=== PATIENT | female | born 1975 | race American Indian/Alaskan Native ===

== ENCOUNTER 2018-09-11 19:21 | Emergency (ER) | payer SELFPAY ==
[2018-09-11] MEDS ORDERED: NACL 0.9% 500 ML 500 ML IV ONE (19:33)
--- NOTE | 2018-09-11 19:53 | Emergency Department Report ---
ED Syncope HPI - General Chief Complaint: Anxiety Stated Complaint: CHEST PAIN/MARSHALL Time Seen by Provider: 09/11/18 19:23 Source: patient Exam Limitations: no limitations - History of Present Illness Initial Comments: Mrs. Brooks is a 43-year-old female with history of mild intermittent asthma and anxiety who presents status post syncopal episode. She's been under a mild amount of stress. She recently dropped her daughter her first born to [facility]. She passed out while speaking with another parent on campus. Prior to this syncopal episode, she developed stomach pain and chest pain. At this time she has chest heaviness as if someone is sitting on her chest. 2 years ago at [facility], she was evaluated by sample processor with a Holter monitor. She was ruled out for cardiac disease at that time. She takes propranolol as needed for anxiety. No previous history of syncope. No recent travel. She lives in [facility]. No leg pain. No use of contraceptives. She is worried for her daughter as she begins university studies. Her daughter has a physical disability. Family history of cardiovascular disease. No history in the family of venous thromboembolic disease. Past surgical history includes cholecystectomy, 2 back surgeries, C-sections, tubal ligation, Timing/Prior Episodes: single episode today Precipitating Factors: Positive: other (chest abdominal pain) Context: standing Loss of Consciousness: brief (seconds) Current Symptoms: chest pain - Related Data Allergies/Adverse Reactions: Allergies methimazole [From Tapazole] Allergy (Verified 09/11/18 19:26) Unknown morphine Allergy (Verified 09/11/18 19:26) Unknown ED Review of Systems ROS: Stated complaint: CHEST PAIN/MARSHALL Other details as noted in HPI Comment: All other systems reviewed and negative Constitutional: denies: fever, malaise Cardiovascular: chest pain Psychiatric: anxiety ED Past Medical Hx - Past Medical History Previous Medical History?: Yes Hx Psychiatric Treatment: Yes (depression, anxiety) Additional medical history: fibermyalgia, thyroid, djd, pcos, - Surgical History Past Surgical History?: Yes Hx Cholecystectomy: Yes Additional Surgical History: c section x 2, back surgery x 2, tonsils, - Family History Family history: no significant - Social History Smoking Status: Never Smoker Substance Use Type: None ED Physical Exam - General Limitations: No Limitations General appearance: alert, in no apparent distress - Head Head exam: Present: atraumatic, normocephalic - Eye Eye exam: Present: normal appearance - ENT ENT exam: Present: mucous membranes moist - Neck Neck exam: Present: normal inspection, full ROM - Respiratory Respiratory exam: Present: normal lung sounds bilaterally. Absent: respiratory distress, wheezes, rhonchi - Cardiovascular Cardiovascular Exam: Present: regular rate, normal rhythm, normal heart sounds. Absent: systolic murmur, diastolic murmur, rubs, gallop - GI/Abdominal GI/Abdominal exam: Present: soft, normal bowel sounds. Absent: distended, tenderness, guarding, rebound - Extremities Exam Extremities exam: Present: normal inspection - Back Exam Back exam: Present: normal inspection - Neurological Exam Neurological exam: Present: alert, oriented X3 - Psychiatric Psychiatric exam: Present: depressed, other (tearful and obviously upset) - Skin Skin exam: Present: warm, dry, intact, normal color. Absent: rash ED Course Vital Signs 09/11/18 09/11/18 19:26 19:58 Temperature 97.9 F Pulse Rate 80 82 Respiratory 18 20 Rate Blood Pressure 138/65 Blood Pressure 139/71 [Left] O2 Sat by Pulse 96 98 Oximetry ED Medical Decision Making - Lab Data Result diagrams: 09/11/18 19:53 09/11/18 19:53 - EKG Data EKG shows normal: sinus rhythm, axis, intervals, QRS complexes, ST-T waves Rate: normal - EKG Data 09/11/18 20:03 NSR nl rate nl axis nl intervals no ST-T signs of ischemia no ST elevation rate 70 beats a minute obtained 2000 - Medical Decision Making Mrs. brooks presents to the emergency department for syncope. At the scene of the episode, she admittedly was hyperventilating. She has been under a lot of stress past week. She's had insomnia. Her 20-year-old child has a physical disability. She is concerned that her child may not fare well at University. PERC negative for PE. Normal EKG. Normal CBC and chemistry. Appropriate for home. She has been hemodynamically stable throughout her ED observation. According to [place] syncope rules, patient is low risk for major adverse cardiac event. Discharged home. Critical care attestation.: If time is entered above; I have spent that time in minutes in the direct care of this critically ill patient, excluding procedure time. ED Disposition Clinical Impression: Syncope, Stress Disposition: DC-01 TO HOME OR SELFCARE Is pt being admited?: No Does the pt Need Aspirin: No Condition: Stable Instructions: Syncope (ED)
[2018-09-11 20:05] LABS: Hematocrit 41.6 % (30.3-42.9); Mean Corpuscular HGB Conc 34 % (30-34); Mean Corpuscular Volume 96 fl (79-97); Platelet Count 304 K/mm3 (140-440); Red Blood Count 4.35 M/mm3 (3.65-5.03); Red Cell Distribution Width 13.8 % (13.2-15.2)
[2018-09-11 20:23] LABS: BUN/Creatinine Ratio 18; Blood Urea Nitrogen 18 mg/dL (7-17); Calcium 9.3 mg/dL (8.4-10.2); Hemolysis Index 27
--- NOTE | 2018-09-11 21:49 | XRay Report ---
CHEST 1 VIEW INDICATION: Anxiety. COMPARISON: None. FINDINGS: Support devices: None. Heart: Within normal limits. Lungs/Pleura: Basilar atelectasis is mild. Additional findings: None. IMPRESSION: Mild basilar atelectasis. Signer Name: Tramaine Harrell MD Signed: 09/11/2018 9:45 PM Workstation Name: [id number]
[2018-09-11 21:54] VITALS: BP 142/79
[2018-09-11 22:24] LABS: Basophils % (Manual) 0 % (0.0-1.8); Large Platelets 1+; Platelet Estimate Consistent w Auto; RBC Morphology Normal; Total Cells Counted 100
== END 2018-09-11 22:00 | disposition home or self-care (01) ==
LOC: ED 19:21
DX: R55 Syncope and collapse (principal); F43.9 Reaction to severe stress, unspecified
CPT/HCPCS: 36415; 71045; 80048; 85007; 85025; 93005; 93010; 96360; 99284; J7040